=== PATIENT | female | born 1970 | race Caucasian/White ===

== ENCOUNTER → 2023-03-29 08:21 | Outpatient (REF) | payer OTHER, SELFPAY ==
[2023-03-29 08:55] VITALS: BP 139/86; BP_SYST 71
== END ==
LOC: RADI 08:21
PROVIDERS: ATTENDING PHYSICIAN Otolaryngology; FAMILY PHYSICIAN Family Medicine
DX: E04.1 Nontoxic single thyroid nodule (principal)
CPT/HCPCS: 88173; 10005

== ENCOUNTER → 2023-08-29 16:12 | Outpatient (REF) | payer OTHER, SELFPAY | LOC: WDC 16:12 | PROVIDERS: ATTENDING PHYSICIAN Obstetrics & Gynecology Gynecology | DX: Z12.31 Encounter for screening mammogram for malignant neoplasm of breast (principal) | CPT/HCPCS: 77063; 77067 ==

== ENCOUNTER → 2023-11-10 14:55 | Outpatient (REF) | payer OTHER, SELFPAY | LOC: RAD 14:55 | PROVIDERS: ATTENDING PHYSICIAN Family Medicine | DX: S60.032A Contusion of left middle finger without damage to nail, initial encounter (principal) | CPT/HCPCS: 73140 ==

== ENCOUNTER → 2024-08-29 17:27 | Outpatient (REF) | payer OTHER, SELFPAY | LOC: WDC 17:27 | PROVIDERS: ATTENDING PHYSICIAN Obstetrics & Gynecology Gynecology | DX: Z12.31 Encounter for screening mammogram for malignant neoplasm of breast (principal) | CPT/HCPCS: 77063; 77067 ==